=== PATIENT | male | born 2000 | race Two or more races ===

== ENCOUNTER 2020-02-10 15:07 | Emergency (ER) | payer BC ==
[~2020-02-10] VITALS: Ht 180.3 cm; Wt 60.8 kg
--- NOTE | 2020-02-10 15:39 | NUR ---
Patient eloped from facility. ER MD notified.
[2020-02-10 15:41] VITALS: BP 123/65
--- NOTE | 2020-02-10 15:42 | NUR ---
Called NO response NOT in [place]
== END 2020-02-10 15:43 | disposition home or self-care (01) ==
LOC: ER 15:11
DX: J02.9 Acute pharyngitis, unspecified (principal); R50.9 Fever, unspecified; Z53.21 Procedure and treatment not carried out due to patient leaving prior to being seen by health care provider